=== PATIENT | male | born 1980 | race Caucasian/White ===

== ENCOUNTER 2023-01-19 15:46 | Emergency (ER) | payer SELFPAY ==
[~2023-01-19] VITALS: Ht 167.6 cm; Wt 86.4 kg
[2023-01-19 15:47] VITALS: TEMP 98
[2023-01-19] MEDS ORDERED: ISOVUE-370 76% 100ML VIAL As Ordered ONE (20:02)
[2023-01-19 20:03] LABS: BASO # 0.1 10^3/uL (0.0-0.2); BASO % 1.6 % (0.0-1.0); EOS % 0.3 % (0.0-3.0); HEMATOCRIT 37.5 % (42.0-52.0); HEMOGLOBIN 12.5 g/dl (13.5-17.5); LYMPH # 1.4 10^3/uL (1.5-5.0); LYMPH % 16.3 % (24.0-44.0); MEAN CORPUSCULAR HEMOGLOBIN 29.9 pg (27.0-33.0); MEAN CORPUSCULAR HGB CONC 33.3 g/dl (32.0-36.5); MEAN CORPUSCULAR VOLUME 89.7 fl (80.0-96.0); MONO # 0.6 10^3/uL (0.0-0.8); MONO % 6.9 % (2.0-8.0); NEUTROPHILS # 6.5 10^3/uL (1.5-8.5); NEUTROPHILS % 74.7 % (36.0-66.0); PLATELET COUNT, AUTOMATED 378 10^3/uL (150-450); RED BLOOD COUNT 4.18 10^6/uL (4.30-6.10); WHITE BLOOD COUNT 8.7 10^3/uL (4.0-10.0)
[2023-01-19 20:17] LABS: BLOOD UREA NITROGEN 9 MG/DL (9-23); CALCIUM LEVEL 9.2 MG/DL (8.5-10.1); CARBON DIOXIDE LEVEL 33 MMOL/L (20-31); CHLORIDE LEVEL 102 MMOL/L (98-107); CREATININE FOR GFR 0.98 MG/DL (0.70-1.30); GLOMERULAR FILTRATION RATE > 60.0 (>60); GLUCOSE, FASTING 104 MG/DL (60-100); POTASSIUM SERUM 3.7 MMOL/L (3.5-5.1); SODIUM LEVEL 142 MMOL/L (136-145)
[2023-01-19] MEDS ORDERED: NS 1,000 ML IV ONE ×2 (21:05→23:55)
[2023-01-19] MEDS ORDERED: KETOROLAC 30 MG/ML 1ML VIAL IV ONE (21:15)
[2023-01-19 21:28] LABS: CK-MB VALUE MASS 16.6 NG/ML (<3.6)
[2023-01-19 21:29] LABS: CPK CREATINE PHOSPHOKINASE 1136 U/L (46-171); MB/CK RELATIVE INDEX 1.46 (< OR =4)
[2023-01-19 22:30] LABS: GC DNA AMPLIFICATION NEGATIVE (NEGATIVE)
[2023-01-19 23:02] LABS: ALBUMIN 4.2 G/DL (3.2-5.2); ALKALINE PHOSPHATASE 74 U/L (46-116); ALT/SGPT 43 U/L (7.0-40); AST/SGOT 44 U/L (<34); BILIRUBIN,DIRECT 0.4 MG/DL (<0.4); BILIRUBIN,TOTAL 0.9 MG/DL (0.3-1.2); TOTAL PROTEIN 7.2 G/DL (5.7-8.2)
[2023-01-20 01:04] LABS: RSV AMPLIFICATION NEGATIVE (NEGATIVE)
[2023-01-20 02:22] VITALS: BP 150/76; O2SAT 100
== END 2023-01-20 02:45 | disposition home or self-care (01) ==
LOC: M ED 15:46
DX: S39.011A Strain of muscle, fascia and tendon of abdomen, initial encounter (principal); R74.8 Abnormal levels of other serum enzymes; R00.1 Bradycardia, unspecified
CPT/HCPCS: 71046; 74177; 80048; 80076; 81001; 81002; 82550; 82553; 83605; 84484; 85025; 87040; 87631; 87661; 87810; 87850; 93005; 96361; 96374; 99284; J1885; Q9967